=== PATIENT | male | born 1970 | race African-American/Black ===

== ENCOUNTER 2020-03-29 00:15 | Emergency (ER) | payer BC ==
[~2020-03-29] VITALS: Ht 190.5 cm; Wt 113.0 kg
[2020-03-29] MEDS ORDERED: MORPHINE SULFATE 4 MG/ML CPJ (NOT FOR IM USE) IV STA (01:29)
[2020-03-29 01:48] LABS: HEMATOCRIT. 39.9 % (42.0-52.0); HEMOGLOBIN. 13.4 g/dL (14.0-18.0); MEAN CORPUSCULAR HEMOGLOBIN 28.5 pg (28.0-32.0); MEAN CORPUSCULAR VOLUME 85.3 fL (80.0-94.0); MEAN PLATELET VOLUME 7.5 fl (7.4-10.4); PLATELET 190 x1000/uL (130-400); RED BLOOD CELL COUNT 4.68 mill/uL (4.7-6.1); RED CELL DISTRIBUTION WIDTH 13.7 % (11.6-14.6)
[2020-03-29 01:51] LABS: CHLORIDE 110 mEq/L (98-107)
[2020-03-29 05:00] VITALS: BP 140/70
[2020-03-29 05:36] LABS: PLATELET ESTIMATE NORMAL
== END 2020-03-29 05:00 | disposition home or self-care (01) ==
LOC: ER 00:15 → EDBD 00:15 → ER 05:00
DX: R07.89 Other chest pain (principal); Z86.73 Personal history of transient ischemic attack (TIA), and cerebral infarction without residual deficits
CPT/HCPCS: 36415; 71045; 80053; 84484; 85025; 85379; 93005; 96374; 99285; J2270